=== PATIENT | male | born 1990 | race Caucasian/White ===

== ENCOUNTER 2022-04-04 20:23 | Emergency (ER) | payer OTHER ==
[~2022-04-04 20:23] MED LIST: BACTRIM DS TAB1 EACH PO; KEFLEX CAP 500500 MG PO
== END 2022-04-04 22:00 | disposition home or self-care (01) ==
LOC: ER1 20:23
DX: S83.92XA Sprain of unspecified site of left knee, initial encounter (principal); X50.9XXA Other and unspecified overexertion or strenuous movements or postures, initial encounter
CPT/HCPCS: 73564; 99283

== ENCOUNTER → 2022-04-16 | Outpatient (CLI) | payer OTHER | LOC: EMI 08:48 | DX: S83.512A Sprain of anterior cruciate ligament of left knee, initial encounter (principal); M25.462 Effusion, left knee | CPT/HCPCS: 73721 ==